=== PATIENT | male | born 1975 | race Caucasian/White ===

== ENCOUNTER → 2020-11-24 | Outpatient (CLI) | payer MEDICAID ==
[~2020-11-24] MED LIST: GABA-827 PO; MELO15TA24 PO; OXYC1TAB14 PO
== END | disposition home or self-care (01) ==
LOC: RAD 12:28
PROVIDERS: ATTEND Nurse Practitioner Psychiatric/Mental Health
DX: R13.10 Dysphagia, unspecified (principal)
CPT/HCPCS: 74220